=== PATIENT | female | born 1955 | race Caucasian/White ===

== ENCOUNTER 2018-01-06 11:04 | Emergency (ER) | payer SELFPAY, MEDICAID | END 2018-01-06 20:23 | disposition left against medical advice (07) | LOC: E/R 11:04 | DX: Z53.21 Procedure and treatment not carried out due to patient leaving prior to being seen by health care provider (principal) ==

== ENCOUNTER 2018-01-08 13:21 | Inpatient (IN) | payer BC ==
[2018-01-08] MEDS ORDERED: LEVALBUTEROL (NEB) 1.25 MG/0.5 ML AMP INH (16:15)
[2018-01-08] MEDS ORDERED: IPRATROPIUM (NEB) 0.5 MG/2.5 ML AMP NEB (16:15)
[2018-01-08] MEDS ORDERED: SOD CHLORIDE 0.9% 1,000 ML IV (16:30)
[2018-01-08 16:50] LABS: ADD UMIC NO; UR ASCORBIC ACID NEGATIVE (NEGATIVE); UR BILIRUBIN (Dip) NEGATIVE (NEGATIVE); UR BLOOD (Dip) NEGATIVE (NEGATIVE); UR CLARITY CLEAR (CLEAR); UR COLOR STRAW (YELLOW); UR GLUCOSE (Dip) 3+ mg/dL (NEGATIVE); UR KETONES (Dip) NEGATIVE (NEGATIVE); UR LEUKOCYTE ESTERASE (Dip) NEGATIVE Leu/ul (NEGATIVE); UR NITRITE (Dip) NEGATIVE (NEGATIVE); UR SPECIFIC GRAVITY (Dip) 1.009 (1.003-1.030); UR TOTAL PROTEIN (Dip) NEGATIVE (NEGATIVE); UR UROBILINOGEN (Dip) NEGATIVE (NEGATIVE)
[2018-01-08] MEDS: IPRATROPIUM (NEB) 0.5 MG/2.5 ML AMP INH (17:00)
[2018-01-08] MEDS: LEVALBUTEROL (NEB) 1.25 MG/0.5 ML AMP INH (17:00)
[2018-01-08] MEDS: CEFTRIAXONE 1 GM/50 ML (PMX) 50 ML IVPB (17:01)
[2018-01-08 17:06] LABS: ADD MAN DIFF? NO
[2018-01-08 17:10] LABS: BASOPHIL # 0.1 10^3/ul (0.0-0.1); BASOPHILS % 0.2 % (0.0-2.0); HEMATOCRIT 32.2 % (37.0-47.0); HEMOGLOBIN 10.8 g/dl (12.0-16.0); LYMPHOCYTES # 1.1 10^3/ul (0.8-2.9); LYMPHOCYTES % 4.8 % (15.0-51.0); MEAN CORPUSCULAR HEMOGLOBIN 25.5 pg (29.0-33.0); MEAN CORPUSCULAR HGB CONC 33.5 g/dl (32.0-37.0); MEAN CORPUSCULAR VOLUME 76.1 fl (82.0-101.0); MEAN PLATELET VOLUME 10.2 fl (7.4-10.4); MONOCYTES % 4.4 % (0.0-11.0); NEUTROPHIL # 19.9 10^3/ul (1.6-7.5); NEUTROPHILS % 87.4 % (39.0-77.0); PLATELET COUNT 368 10^3/UL (140-415); RED BLOOD COUNT 4.23 10^6/ul (4.20-5.40); RED CELL DISTRIBUTION WIDTH 15.9 % (11.5-14.5)
[2018-01-08 17:10] LABS: WHITE BLOOD COUNT 22.8 10^3/ul (4.8-10.8)
[2018-01-08 17:30] LABS: INR 0.99; PROTIME 13.2 Sec (11.9-14.9)
[2018-01-08 17:31] LABS: PARTIAL THROMBOPLASTIN TIME 34.9 Sec (25.0-35.0)
[2018-01-08 17:38] LABS: ALANINE AMINOTRANSFERASE 42 IU/L (13-69); ALBUMIN 3.6 g/dl (3.3-4.9); ALBUMIN/GLOBULIN RATIO 0.87; ALKALINE PHOSPHATASE 201 IU/L (42-121); ANION GAP 17 (8-16); ASPARTATE AMINO TRANSFERASE 39 IU/L (15-46); BLOOD UREA NITROGEN 21 mg/dl (7-20); CARBON DIOXIDE 22 mmol/L (21-31); CHLORIDE 94 mmol/L (97-110); CREATININE 0.76 mg/dl (0.44-1.00); POTASSIUM 4.5 mmol/L (3.5-5.1); SODIUM 128 mmol/L (135-144); TOTAL PROTEIN 7.7 g/dl (6.1-8.1)
[2018-01-08] MEDS: AZITHROMYCIN 500MG/NS (PMX) 250 ML IVPB (17:39)
[2018-01-08 17:41] LABS: GLUCOSE 439 mg/dl (70-220)
[2018-01-08] MEDS: SODIUM CHLORIDE 0.9% 1L BAG IV* (17:41)
[2018-01-08 17:42] LABS: LACTIC ACID 2.3 mmol/L (0.5-2.0)
[2018-01-08 17:50] LABS: B-TYPE NATRIURETIC PEPTIDE 280 PG/ML (0-125)
[2018-01-08] MEDS ORDERED: ALBUTEROL 0.083% (NEB) 2.5 MG/3 ML AMP HHN (18:00)
[2018-01-08] MEDS ORDERED: BISACODYL (EC) 5 MG TAB PO (18:00)
[2018-01-08] MEDS ORDERED: DOCUSATE SODIUM 100 MG CAP PO (18:00)
[2018-01-08] MEDS ORDERED: NACL 0.9% 3 ML SYG IV (18:00)
[2018-01-08] MEDS ORDERED: MAGNESIUM HYDROXIDE 30ML CUP PO (18:00)
[2018-01-08 18:07] LABS: TROPONIN-I < 0.012 ng/ml (0.00-0.12)
[2018-01-08 18:18] LABS: ERYTHROCYTE SEDIMENTATION RATE 125 mm/Hr (0-30)
[2018-01-08 19:09] LABS: HEMOGLOBIN A1C 7.8 % (0-5.9)
[2018-01-08] MEDS ORDERED: GLUCOSE GEL 15 GRAM TUBE BUCCAL (19:30)
[2018-01-08] MEDS ORDERED: GLUCOSE GEL 15 GRAM TUBE PO ×2 (19:30)
[2018-01-08] MEDS ORDERED: DEXTROSE 50% 50 ML SYRINGE IV ×2 (19:30)
[2018-01-08] MEDS ORDERED: GLUCAGON 1 MG INJ IM (19:30)
[2018-01-08 19:32] LABS: LACTIC ACID 2.6 mmol/L (0.5-2.0)
[2018-01-08] MEDS: SOD CHLORIDE 0.9% 1,000 ML IV ×2 (20:00→21:03)
[2018-01-08] MEDS: INSULIN REGULAR, HUMAN 100 UNIT/1 ML 3ML VIAL SC (21:05)
[2018-01-08] MEDS: INSULIN ASPART [NOVOLOG] 3 ML PEN SC (21:24)
[2018-01-08] MEDS: ACETAMINOPHEN 325 MG TAB PO (21:25)
[2018-01-08 21:27] LABS: LACTIC ACID 2.2 mmol/L (0.5-2.0)
[2018-01-09 05:33] LABS: ADD MAN DIFF? NO
[2018-01-09 05:36] LABS: BASOPHILS % 0.2 % (0.0-2.0); EOSINOPHILS % 0.1 % (0.0-7.0); HEMATOCRIT 28.7 % (37.0-47.0); HEMOGLOBIN 9.5 g/dl (12.0-16.0); LYMPHOCYTES # 1.6 10^3/ul (0.8-2.9); LYMPHOCYTES % 11.1 % (15.0-51.0); MEAN CORPUSCULAR HEMOGLOBIN 25.5 pg (29.0-33.0); MEAN CORPUSCULAR HGB CONC 33.1 g/dl (32.0-37.0); MEAN CORPUSCULAR VOLUME 77.2 fl (82.0-101.0); MEAN PLATELET VOLUME 9.6 fl (7.4-10.4); MONOCYTES % 7.2 % (0.0-11.0); NEUTROPHILS % 78.3 % (39.0-77.0); PLATELET COUNT 344 10^3/UL (140-415); RED BLOOD COUNT 3.72 10^6/ul (4.20-5.40); RED CELL DISTRIBUTION WIDTH 16.2 % (11.5-14.5)
[2018-01-09 06:06] LABS: LACTIC ACID 1.6 mmol/L (0.5-2.0)
[2018-01-09 07:14] LABS: ALBUMIN 2.9 g/dl (3.3-4.9); ANION GAP 13 (8-16); BLOOD UREA NITROGEN 13 mg/dl (7-20); CALCIUM 8.1 mg/dl (8.4-10.2); CARBON DIOXIDE 24 mmol/L (21-31); CHLORIDE 105 mmol/L (97-110); CREATININE 0.66 mg/dl (0.44-1.00); GLUCOSE 208 mg/dl (70-220); MAGNESIUM 1.9 mg/dl (1.7-2.5); PHOSPHORUS 2.8 mg/dl (2.5-4.9); POTASSIUM 4.2 mmol/L (3.5-5.1); SODIUM 138 mmol/L (135-144)
[2018-01-09] MEDS: ACETAMINOPHEN 325 MG TAB PO ×2 (08:15→15:37)
[2018-01-09] MEDS: LOSARTAN 50 MG TAB PO (08:16)
[2018-01-09] MEDS: GUAIFENESIN/DM (SR) TAB PO (08:16)
[2018-01-09] MEDS: AMLODIPINE 5 MG TAB PO (08:17)
[2018-01-09] MEDS: ENOXAPARIN 40 MG/0.4 ML SYG SC (08:18)
[2018-01-09] MEDS: INSULIN ASPART [NOVOLOG] 3 ML PEN SC ×4 (08:18→20:43)
[2018-01-09] MEDS: CEFTRIAXONE 2 GM/50 ML (PMX) 50 ML IVPB (16:50)
[2018-01-09] MEDS: AZITHROMYCIN 500MG/NS (PMX) 250 ML IVPB (17:25)
[2018-01-10 06:11] LABS: ADD MAN DIFF? NO
[2018-01-10 06:37] LABS: ABNORMAL IP MESSAGE 1; HEMATOCRIT 32.6 % (37.0-47.0); HEMOGLOBIN 10.9 g/dl (12.0-16.0); MEAN CORPUSCULAR HEMOGLOBIN 25.6 pg (29.0-33.0); MEAN CORPUSCULAR HGB CONC 33.4 g/dl (32.0-37.0); MEAN CORPUSCULAR VOLUME 76.5 fl (82.0-101.0); MEAN PLATELET VOLUME 10.1 fl (7.4-10.4); NUCLEATED RED BLOOD CELLS% 0.2 /100WBC (0.0-0.0); PLATELET COUNT 404 10^3/UL (140-415); RED BLOOD COUNT 4.26 10^6/ul (4.20-5.40); RED CELL DISTRIBUTION WIDTH 15.9 % (11.5-14.5)
[2018-01-10 06:37] LABS: WHITE BLOOD COUNT 13.1 10^3/ul (4.8-10.8)
[2018-01-10 06:46] LABS: POSITIVE DIFF @See below
[2018-01-10 07:20] LABS: ALBUMIN 3.2 g/dl (3.3-4.9); ANION GAP 15 (8-16); BLOOD UREA NITROGEN 9 mg/dl (7-20); CALCIUM 9.1 mg/dl (8.4-10.2); CARBON DIOXIDE 23 mmol/L (21-31); CHLORIDE 99 mmol/L (97-110); CREATININE 0.63 mg/dl (0.44-1.00); GLUCOSE 180 mg/dl (70-220); MAGNESIUM 1.8 mg/dl (1.7-2.5); PHOSPHORUS 4.1 mg/dl (2.5-4.9); POTASSIUM 4.4 mmol/L (3.5-5.1); SODIUM 133 mmol/L (135-144)
[2018-01-10] MEDS: GUAIFENESIN/DM (SR) TAB PO (08:11)
[2018-01-10] MEDS: LOSARTAN 50 MG TAB PO (08:12)
[2018-01-10] MEDS: AMLODIPINE 5 MG TAB PO (08:12)
[2018-01-10] MEDS: ENOXAPARIN 40 MG/0.4 ML SYG SC (08:17)
[2018-01-10] MEDS: INSULIN ASPART [NOVOLOG] 3 ML PEN SC ×2 (08:17→12:14)
[2018-01-12] MEDS ORDERED: INFLUENZA VIRUS VACCINE 0.5 ML (DISPENSING) IM* (09:00)
== END 2018-01-10 13:00 | disposition home or self-care (01) | DRG 871 ==
LOC: MS2 01-09 13:40 → FTE 13:21 → MS2 17:36
DX: A41.9 Sepsis, unspecified organism (principal); J10.00 Influenza due to other identified influenza virus with unspecified type of pneumonia; I10 Essential (primary) hypertension; E11.65 Type 2 diabetes mellitus with hyperglycemia; R51 Headache; Z79.84 Long term (current) use of oral hypoglycemic drugs; Z79.4 Long term (current) use of insulin
CPT/HCPCS: 70450; 71045; 80053; 80069; 81003; 82962; 83036; 83605; 83735; 83880; 84484; 85025; 85610; 85651; 85730; 87040; 87400; 93005; 94644; 96365; 96366; 96368; 99291-25